=== PATIENT | female | born 1955 | race Caucasian/White ===

== ENCOUNTER 2017-02-27 08:35 | Emergency (ER) | payer MEDICAID ==
[~2017-02-27] VITALS: Ht 162.6 cm; Wt 63.2 kg
[2017-02-27 08:38] VITALS: PULSE 69; RESP 18; O2SAT 97
--- NOTE | 2017-02-27 09:33 | ED.REPORT ---
HPI-Abd Pain F 40 and Over Date of Service Feb 27, 2017 ED Provider: Frank Holder MD Elena Burrows is a 62 year old female with a history of an ovarian cyst at the the age 18 presents to the ER with LLQ abdominal pain that has been occurring for the past 3 weeks. The pain is exacerbated with palpation. She also reports "numbness" in the area and has been disturbed from sleep every 2 hours. Last night the frequency of the reoccurrence increased to once every hour. Patient also describes describes her recent bowel sounds as a "gurgling" and admits to diarrhea as well as low appetite in recent history. The patient denies fever, nausea, vomiting, dysuria and has not taken antibiotics recently. Nursing Notes Stated Complaint: POSSIBLE CYST ON LEFT OVARY Chief Complaint: Female Abdominal Pain Nursing Notes Reviewed: Yes ([employer] not reconciled) Allergies: Coded Allergies: codeine (Verified Allergy, Unknown, 02/27/17) Scheduled Amoxicillin/Clav K 875-125 mg (Augmentin 875-125 mg) 1 Each Tablet 1 TABLET PO BID Scheduled PRN Hydrocodone-Acetaminophen 5-325 mg (Hydrocodone-Acetaminophen 5-325 mg) 1 Each Tablet 0.5-2 TABLET PO Q6H PRN PRN For Pain General Time Seen by MD: 09:18 Chief Complaint Abdominal pain Hx Obtained From: Patient Arrived By: Walk-in Sudden in Onset?: No Onset Occurred: More than a week ago... 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 Physical Exam Vital Signs Vital Signs (First) Date Time Temp Pulse Resp B/P Pulse Ox O2 Delivery O2 Flow Rate FiO2 02/27/17 08:38 36.1 69 18 97 Room Air Initial VS: Reviewed, Vital signs normal Head / Eyes: Atraumatic, Normocephalic Neck: Supple, Non-tender, Full range of motion Extremities: Vascular intact, Neuro intact, No swelling, No tenderness Skin: Warm, Dry Neurologic: Alert, Oriented General/Constitutional: Awake, Alert, No acute distress, Well developed, Well nourished Respiratory / Chest: Breath sounds NL, Breath sounds = bilat, No respiratory distress, No rales, No rhonchi, No wheezing, No stridor Cardiovascular: Heart rate NL, Regular rhythm, Heart sounds NL, Peripheral circulation NL Tenderness/Guarding/Rebound: Positive: Tender LLQ... (Mild) Interpretation & Diagnostics Lab Results Interpretation Test 02/27/17 11:00 Hold Urine Received (Received) Re-Eval/Medical Decision Med Decision/Clinical Course This is a generally healthy 8-year-old female presents with isolated left lower quadrant pain and worsening over the past several days. Mild hint over the past week to 2 weeks, was increased particularly over the past 3 days that she did not sleep well last night-that is what brought her in. She has noted a little bit of change in bowel habits as well, but has had no fever or additional complaint. She has no prior history of diverticulitis. Patient clinically appears well. She is afebrile and nontoxic. Clinical abdominal exam is benign, but there is trace tenderness in the left lower quadrant-there are no findings suggest peritonitis or surgical abdomen. I discussed options with the patient. The patient's history and exam are strongly suggestive of probable diverticulitis, and we discussed pursuing laboratory and imaging versus treating empirically. The patient's reasonably elected to treat empirically, and pursue workup in laboratories/imaging only if symptoms are not improving, or if new symptoms occur over the next few days. The patient is being started on Augmentin. Probiotics were also recommended. A few hydrocodone for pain control or being offered as well. Routine precautions carefully reviewed. Patient is discharged in good condition. Source of Hx: Old records Re-Evaluation/Progress : Time of Eval: 09:30 Re-Evaluation/Progress Note: Discussed diagnosis and plan for treatment with the patient. The patient understands and agrees to the plan. All questions answered. Differential Diagnosis: Negative: Abdominal aortic aneurysm, Appendicitis, C. diff colitis, Ectopic , Endometriosis, Esophageal rupture, Gun shot wound abdomen, Pancreatitis, Peritonitis, Pyelonephritis, Stab wound abdomen Discharge & Departure Primary Impression: Diverticulitis Diverticulitis site: unspecified part of intestinal tract Diverticulitis bleeding: without bleeding Diverticulitis complication: without perforation or abscess Qualified Code: K57.92 - Diverticulitis of intestine, part unspecified, without perforation or abscess without bleeding Disposition: Home Discharge Condition All VS Reviewed: Yes Condition: Improved Patient Instructions: Diverticulitis (DC) Additional Instructions: 1. Your symptoms and exam are strongly suggestive of diverticulitis, an infection/inflammation of part of the lower intestine. Your symptoms and exam are so suggestive that it is entirely reasonable to treat empirically-meaning without performing laboratory tests or imaging at this time. 2. Take the antibiotic amoxicillin/clavulanic acid 875 mg twice a day for 14 days. 3. I also recommend taking a daily probiotic-in the continuing the probiotic for another 1-2 weeks after finishing the antibiotic. 4. Symptoms are expected to start to clearly improve after about 2-3 days of the antibiotics. Symptoms are not improving, or if you they are worsening-if you have worsening pain, fever, nausea vomiting-and usually return directly to the emergency department for reevaluation. 5. You can take hydrocodone/APAP 5/325 0.5 tabs up to 2 tabs every 6 hours if needed for pain. Note: This medication does contain a narcotic and causes drowsiness. No driving for at least 4-6 hours after taking. Scribe Attestation Portions of this note were transcribed by Rowdy Osborn and Kurt Burciaga. I, Dr. Holder personally performed the history, physical exam and medical decision -making; I reviewed and confirmed the accuracy of the information in the transcribed note. Signed by: Rowdy Burciaga, Sabrina, 02/27/2017 and Frank Mulligan MD Feb 27, 2017 09:33 Rowdy Osborn Feb 27, 2017 09:43
[2017-02-27] MEDS ORDERED: Amoxicillin-Clav 875-125 mg Tablet PO ONE (09:35)
[2017-02-27] MEDS ORDERED: AMOX-366 PO (10:05)
[2017-02-27] MEDS ORDERED: HYDR-4003 PO (10:05)
[2017-02-27] MEDS ORDERED: HYDROcodone-APAP 5-325 mg Tablet PO ONE (10:20)
== END 2017-02-27 10:20 | disposition home or self-care (01) ==
LOC: SED 08:35
DX: K57.92 Diverticulitis of intestine, part unspecified, without perforation or abscess without bleeding (principal); F17.200 Nicotine dependence, unspecified, uncomplicated; Z87.42 Personal history of other diseases of the female genital tract; Z88.5 Allergy status to narcotic agent

== ENCOUNTER 2017-03-01 12:03 | Emergency (ER) | payer MEDICAID ==
[~2017-03-01 12:03] MED LIST: AMOX-366 PO; HYDR-4003 PO
[2017-03-01 12:46] VITALS: BP 117/80; PULSE 93; RESP 26; O2SAT 98
[2017-03-01 14:16] LABS: BASOPHILS % (AUTO) 0.9 % (0-3); EOSINOPHILS % (AUTO) 3.1 % (0-5); MONOCYTES % (AUTO) 8.3 % (4-12); Mean Corpuscular Hemoglobin 28.3 pg (27.0-35.0); Mean Corpuscular Volume 86.5 fL (81-100); NEUTROPHILS % (AUTO) 62.2 % (40-74); Platelet Count 277 bil/L (150-400)
--- NOTE | 2017-03-01 14:20 | DRSVH ---
PROCEDURE: X-RAY ACUTE ABDOMINAL SERIES ([id number]) INDICATIONS: pain, constipation TECHNIQUE: One view chest and two views of the abdomen were acquired. COMPARISON: None. FINDINGS: Surgical changes and devices: None. Chest: Lungs are clear. Heart size is normal. No pleural effusions. No pneumoperitoneum. Abdomen: Bowel gas pattern is normal. Moderate amount of residual stool is identified within the co rayne. No air-filled distended small bowel loops are present demonstrating air-fluid levels. No organ omegaly is appreciated. No suspicious calcifications. Visualized solid organ contours appear normal . Bones: No suspicious bony lesions. There is an S-shaped curvature of the imaged spine. Bone minera lization is diffusely decreased. Mild to moderate multilevel degenerative changes of the imaged spin e are present. IMPRESSION: 1. No bowel obstruction. 2. No pneumonia or acute cardiopulmonary process. Dictated by: Donnell Cantor M.D. on 03/01/2017 at 13:17 Approved by: Donnell Cantor M.D. on 03/01/2017 at 13:18
[2017-03-01 14:38] LABS: Magnesium 2.2 mg/dL (1.6-2.6)
[2017-03-01] MEDS ORDERED: HYDROmorphone 0.5 mg/0.5 mL iSecure Syringe IVPUSH ONE (15:20)
[2017-03-01] MEDS ORDERED: 0.9% Sodium Chloride 1,000 ML IV SCH (15:25)
[2017-03-01] MEDS ORDERED: 0.9% Sodium Chloride 1,000 ML IV ONE (15:25)
[2017-03-01 15:35] LABS: APPEARANCE,URINE HAZY (CLEAR,HAZY); COLOR,URINE STRAW (YELLOW); OCCULT BLOOD,URINE SMALL (NEGATIVE); UROBILINOGEN,URINE NORMAL (NORMAL)
--- NOTE | 2017-03-01 15:52 | ED.REPORT ---
HPI-Abd Pain F 40 and Over Date of Service Mar 01, 2017 ED Provider: Best Molina MD Elena Burrows is a pleasant 62-year-old woman who denies any past medical history, she presents with worsening left lower quadrant abdominal pain. She was seen 2 days ago for same diagnosed and treated for diverticulosis and given antibiotics, she said since then she has been taking the antibiotics but it has not been helping her pain, she has not had a bowel movement since Tuesday which she attributes to the opioid analgesics (Vicodin). She returns today because she was instructed that if after 3 days she was not having any improvement to do so. She says her pain is 9.5/10 constantly present but comes in waves of getting worse. She is still passing gas, she has been able to eat and drink, no nausea or vomiting, no chest pain, she is unable to find a position of ease. Originally the pain was in the left lower quadrant, but since then has begun radiating into the back. She is postmenopausal, denies any vaginal bleeding. She denies any previous surgeries. Says she is short of breath because of the pain, no chest pain, mild lightheadedness, no dizziness, no numbness or paresthesias to her extremities. Denies dysuria. Nursing Notes Stated Complaint: LEFT SIDE ABDOMINAL PAIN Chief Complaint: Female Abdominal Pain Nursing Notes Reviewed: Yes Allergies: Coded Allergies: codeine (Verified Allergy, Unknown, 02/27/17) Scheduled Amoxicillin/Clav K 875-125 mg (Augmentin 875-125 mg) 1 Each Tablet 1 TABLET PO BID Scheduled PRN Hydrocodone-Acetaminophen 5-325 mg (Hydrocodone-Acetaminophen 5-325 mg) 1 Each Tablet 0.5-2 TABLET PO Q6H PRN PRN For Pain General Time Seen by MD: 15:05 Chief Complaint Abdominal pain Sudden in Onset?: No Similar Sx Previous: No Risk Factors )( AAA Risk Stratification Smoking Risk factors reviewed Past Medical History Past Medical History Ovarian cyst at the age of 18 Past Surgical History Denies any previous surgeries Family History Noncontributory Smoking History Current Every Day Smoker Social History Alcohol Use: Denies alcohol use Drug Use: In recovery, Cocaine Review of Systems Complete sys rev & neg: except as marked. Physical Exam General: Laying in bed, severely uncomfortable moderate distress, unable to find position of ease. HEENT: Normocephalic, atraumatic, EOMI grossly, poor dentition, mucous membranes moist, conjunctiva pink, neck is supple, no palpable lymph nodes, trachea is midline. Cardiovascular: Regular rate and rhythm, no clicks murmurs rubs, peripheral pulses 2/4 equal bilaterally Pulmonary: Clear to auscultation bilaterally, no W/R/R, tachypneic Abdominal: Left lower quadrant is moderately tender, no rebound tenderness, Emerson's sign negative, no pain in McBurney's point, there is tenderness to palpation of the left flank, not the right. Extremities: No edema appreciated. No tenderness, asymmetry. Neuro: Neurologically grossly intact, strength is equal bilaterally upper and lower extremities. MSK: Able to move extremities on their own volition, strength 5 out of 5 equal bilaterally to upper and lower extremities. Vital Signs Vital Signs (First) Date Time Temp Pulse Resp B/P Pulse Ox O2 Delivery O2 Flow Rate FiO2 03/01/17 12:46 37.2 93 26 117/80 98 Room Air Initial VS: Reviewed Interpretation & Diagnostics KUB CAT scan are formed 03/01/2017 IMPRESSION: 1. No visualized nephro or ureterolithiasis. No bladder calculi. 2. 23 mm left ovarian cyst. Dictated by: Kathleen Ohara M.D. on 03/01/2017 at 16:26 Lab Results Interpretation Result Diagram: 03/01/17 1400 03/01/17 1400 Test 03/01/17 14:00 03/01/17 14:25 03/01/17 15:22 White Blood Count 4.6th/mm3 (3.8-10.1) Red Blood Count 4.67mil/mm3 (3.90-5.20) Hemoglobin 13.2g/dL (12.0-15.6) Hematocrit 40.4% (35.0-46.0) Mean Corpuscular Volume 86.5fL (81-100) Mean Corpuscular Hemoglobin 28.3pg (27.0-35.0) Mean Corpuscular Hemoglobin Concent 32.7% (32.0-37.0) Red Cell Distribution Width 13.9% (12.3-15.4) Platelet Count 277bil/L (150-400) Neutrophils (%) (Auto) 62.2% (40-74) Lymphocytes (%) (Auto) 25.3% (14-46) Monocytes (%) (Auto) 8.3% (4-12) Eosinophils (%) (Auto) 3.1% (0-5) Basophils (%) (Auto) 0.9% (0-3) Sodium Level 141mEq/L (134-144) Potassium Level 4.3mEq/L (3.5-5.2) Chloride Level 104mEq/L (97-108) Carbon Dioxide Level 26mmol/L (18-29) Blood Urea Nitrogen 12mg/dL (8-27) Creatinine 0.82mg/dL (0.57-1.00) Estimat Glomerular Filtration Rate 102mL/min (>59) Glucose Level 92mg/dL (60-99) Calcium Level 9.8mg/dL (8.5-10.1) Magnesium Level 2.2mg/dL (1.6-2.6) Total Bilirubin 0.3mg/dL (0.0-1.2) Aspartate Amino Transf (AST/SGOT) 13U/L (0-50) Alanine Aminotransferase (ALT/SGPT) 11U/L (0-32) Alkaline Phosphatase 75U/L (25-165) Total Protein 7.1g/dL (6.4-8.4) Albumin 4.1g/dL (3.4-5.0) Lipase 24U/L (13-60) Hold Johnson Top Tube Received (Received) Urine Color Straw (YELLOW) Urine Appearance Hazy (CLEAR,HAZY) Urine pH 6.0 (5.0-8.0) Urine Specific Lockhart 1.025 (1.003-1.035) Urine Protein Negativemg/dL (NEG,TRACE) Urine Glucose (UA) Negativemg/dL (NEGATIVE) Urine Ketones Tracemg/dL (NEGATIVE) Urine Occult Blood Small (NEGATIVE) Urine Nitrite Negative (NEGATIVE) Urine Bilirubin Negative (NEGATIVE) Urine Urobilinogen Normalmg/dL (NORMAL) Urine Leukocyte Esterase Negative (NEGATIVE) Urine RBC 3-10/hpf (0-2) Urine WBC 0-5/hpf (0-5) Urine Epithelial Cells Occasional/hpf (NONE-MOD) Urine Crystals None seen (NONE SEEN) Urine Bacteria None/hpf (NONE-FEW) Urine Hyaline Casts None/lpf (NONE) Urine Granular Casts None seen (NONE SEEN) Urine Waxy Casts None seen (NONE SEEN) Urine Red Blood Cell Casts None seen (NONE SEEN) Urine White Blood Cell Casts None seen (NONE SEEN) Urine Mucus None seen (None Seen) Urine Trichomonas None seen (NONE SEEN) Urine Yeast None (NONE SEEN) Urinalysis Comment None Urine Culture Reflexed Not indicated Lab Results Interpretation: Hematuria, without infection X-Ray Abdominal Interpretation IMPRESSION: 1. No bowel obstruction. 2. No pneumonia or acute cardiopulmonary process. Dictated by: Donnell Cantor M.D. on 03/01/2017 at 13:17 Interpretation / Wet Read by: Interpret - Radiologist Re-Eval/Medical Decision Med Decision/Clinical Course Initial suspicion was for nephrolithiasis, and/or uretolithiasis, CT KUB was performed which demonstrated left ovarian cyst, no calculi in the genitourinary system. Patient stated her pain was improved with IV Dilaudid throughout hospital stay, she was instructed to follow-up as an outpatient with [facility] regarding the left ovarian cyst which her pain is now attributed to. She was given instructions to alternate ibuprofen and Tylenol, drink plenty of water, as well as information on ovarian cysts. Patient stated understanding to the findings, and agreement with the treatment plan and follow-up. Additionally, urinalysis did show small hematuria, cause of which was not identified on imaging today, patient was encouraged to follow-up with primary care doctor for further evaluation. Discharge & Departure Primary Impression: Ovarian cyst Laterality: left Qualified Code: N83.202 - Unspecified ovarian cyst, left side Additional Impression: Hematuria Disposition: Home Discharge Condition All VS Reviewed: Yes Patient Instructions: Ovarian Cyst (DC) Additional Instructions: Today you were evaluated for ongoing pain in your left abdomen, laboratory results did not show any signs of infection, imaging did not show any kidney stones, or problems with your bowels. However, the imaging performed it showed that you had a 2.3 cm cyst to the left ovary. This can certainly be a cause of the pain. Please see the accompanying handout in regards to ovarian cyst education. We are going to place a referral for follow-up within [facility] for ongoing management of your ovarian cyst. Additionally, your urine did show that there were few red blood cells, please bring this up with your primary care doctor for ongoing evaluation. If at any time he experience chest pain, shortness of breath, or weakness on one side your body, please return to the Emergency Department or call 911 if necessary. In regards to the pain, recommend 400-600mg Ibuprofen every 6 hours, and 650mg Tylenol every 6 hours, alternating every three hours. Take with food and drink plenty of water. Take the Vicodin as prescribed from your previous visit as needed for break through pain. Referrals: Kristin Baez MD (PCP) Misael Harper MD EDSupervising Provider for APC: Best Molina MD Attending Statement Attending attestation: I saw this patient in conjunction with the above named resident. I was present for all minor portions of the history taking and physical examination. I agree with the workup, evaluation, treatment and disposition. Best Molina MD copies to: Misael Harper MD; Kristin Baez MD, Noah M DO Mar 01, 2017 15:52 Best Molina MD Mar 01, 2017 22:56
[2017-03-01 16:14] VITALS: BP 135/85; PULSE 74; O2SAT 96
--- NOTE | 2017-03-01 16:31 | DRSVH ---
PROCEDURE: CT KUB ([id number]) INDICATIONS: Renolithiasis Eval, Lt TECHNIQUE: Noncontrast 5 mm thick sections acquired from the diaphragms to the symphysis. 5 mm thick coronal an d sagittal reformats were then performed. For radiation dose reduction, the following was used: aut omated exposure control, adjustment of mA and/or kV according to patient size. COMPARISON: None. FINDINGS: Image quality: Excellent. Lung bases: Lung bases are clear. Heart size is normal. Genito-Urinary system: Both kidneys are normal in size. No kidney stones. No hydronephrosis or per inephric fat stranding. Both ureters appear non-dilated throughout their expected courses. Bladder wall thickness is normal; no calcified bladder stones. There is a 23 mm low attenuation focus within the left ovary. Other solid organs: Liver is mildly enlarged with steatosis. The spleen is normal in size. Gallblad kasia is unremarkable. Pancreas is normal in contours. No adrenal nodules. Peritoneum and bowel: Unenhanced bowel loops demonstrate normal wall thickness and caliber. No free fluid or air. Nodes and vessels: No retroperitoneal or mesenteric adenopathy by size criteria. Aorta and inferior vena cava are normal in caliber. Abdominal wall: No ventral hernias. Pelvis: No free pelvic fluid. No inguinal hernias or adenopathy. Bones: No suspicious bony lesions. No vertebral body compression fractures. IMPRESSION: 1. No visualized nephro or ureterolithiasis. No bladder calculi. 2. 23 mm left ovarian cyst. Dictated by: Kathleen Ohara M.D. on 03/01/2017 at 16:26 Approved by: Kathleen Ohara M.D. on 03/01/2017 at 16:30
[2017-03-01] MEDS: HYDROmorphone 0.5 mg/0.5 mL iSecure Syringe IVPUSH PRN ×2 (16:42→17:09)
[2017-03-01 17:10] VITALS: BP 122/78; PULSE 69; O2SAT 97
[2017-03-01 17:41] VITALS: BP 122/78; PULSE 69; RESP 26; O2SAT 97
== END 2017-03-01 17:41 ==
LOC: SED 12:03
DX: N83.202 Unspecified ovarian cyst, left side (principal); R31.9 Hematuria, unspecified; F17.200 Nicotine dependence, unspecified, uncomplicated; Z88.5 Allergy status to narcotic agent
CPT/HCPCS: 74022; 74176; 80053; 81000; 81025; 83690; 83735; 85025; 96361; 96374; 96375; 99285; J1170; J1885; J7030